=== PATIENT | female | born 1945 | race African-American/Black ===

== ENCOUNTER 2021-07-17 15:20 | Outpatient (CLI) | payer MEDICARE, MEDICAID ==
[2021-07-17 15:33] LABS: Bilirubin Negative (Negative); Blood, Urine Moderate (Negative); Clarity Turbid (Clear); Glucose, Urine (Dipstick) Negative (Negative); Ketone, Urine Negative (Negative); Leukocyte Negative (Negative); Nitrite Negative (Negative); Protein, Urine (Dipstick) Negative (Neg-Trace); pH, Urine 6.5 (5.0-9.0)
[2021-07-17 15:44] LABS: ALT (SGPT) 19 U/L (8-55); AST (SGOT) 17 U/L (5-34); Albumin 3.2 g/dL (3.4-4.8); Alkaline Phosphatase 139 U/L (40-110); Anion Gap 16 mmol/L (10-20); BUN (Urea Nitrogen) 22 mg/dL (9.8-20.1); Bilirubin, Total 0.2 mg/dL (0.2-1.2); Calc. Creatinine Clearance 0 mL/min (70-130); Calcium 9.2 mg/dL (7.8-10.44); Carbon Dioxide 26 mmol/L (23-31); Chloride 100 mmol/L (98-107); Globulin 4.2 g/dL (2.4-3.5); Glucose 238 mg/dL (83-110); Potassium 5.1 mmol/L (3.5-5.1); Protein, Total 7.4 g/dL (5.8-8.1); Sodium 137 mmol/L (136-145)
[2021-07-17 15:46] LABS: Bacteria/HPF 3+ HPF (None Seen); Oval Fat Bodies/HPF Rare HPF (None Seen); RBC/HPF 0-3 HPF (0-3); Squamous Epithelial 0-3 HPF (0-3); Transitional Epithelial 0-3 HPF (None Seen); WBC/HPF 0-3 HPF (0-3)
[2021-07-17 15:49] LABS: #Basophils 0.1 thou/uL (0.0-0.2); #Eosinphils 0.1 thou/uL (0.0-0.7); #Lymphocytes 3.1 thou/uL (1.20-3.40); #Monocytes 0.8 thou/uL (0.11-0.59); #Neutrophils 5.3 thou/uL (1.40-6.50); %Basophils 0.7 % (0.0-1.0); %Eosinophils 1.2 % (0.0-10.0); %Lymphocytes 32.9 % (21.0-51.0); %Monocytes 8.7 % (0.0-10.0); %Neutrophils 56.5 % (42.0-75.0); Hemoglobin 13.5 g/dL (12.0-16.0); Mean Corpuscular HGB CONC 31.6 g/dL (32.0-36.0); Mean Corpuscular Hemoglobin 27.5 pg (27.0-31.0); Mean Corpuscular Volume 86.9 fL (78.0-98.0); Platelet Count 336 thou/uL (130-400); RBC Distribution Width 14.1 % (11.5-14.5); Red Blood Cell (RBC) Count 4.93 mill/uL (4.20-5.40); White Blood Cell (WBC) Count 9.4 thou/uL (4.8-10.8)
== END 2021-07-17 15:21 | disposition home or self-care (01) ==
LOC: BURMANOR 15:20
PROVIDERS: ATTEND Family Medicine
DX: N39.0 Urinary tract infection, site not specified (principal); D50.9 Iron deficiency anemia, unspecified
CPT/HCPCS: 80053; 81001; 85025; 87077; 87086; 87186

== ENCOUNTER 2022-04-05 08:55 | Outpatient (CLI) | payer MEDICARE, OTHER | END 2022-04-05 08:56 | disposition home or self-care (01) | LOC: BURMANOR 08:55 | PROVIDERS: ATTEND Nurse Practitioner Family | DX: E11.8 Type 2 diabetes mellitus with unspecified complications (principal) | CPT/HCPCS: 83036 ==

== ENCOUNTER 2022-04-24 15:00 | Outpatient (CLI) | payer MEDICARE, OTHER ==
[2022-04-24 15:15] LABS: Bilirubin Negative (Negative); Blood, Urine Small (Negative); Clarity Cloudy (Clear); Glucose, Urine (Dipstick) 500 mg/dL (Negative); Ketone, Urine Negative (Negative); Leukocyte Small (Negative); Nitrite Negative (Negative); Protein, Urine (Dipstick) Negative (Neg-Trace); Specific Gravity, Urine 1.015 (1.005-1.030); pH, Urine 7.5 (5.0-9.0)
[2022-04-24 15:32] LABS: RBC/HPF 0-3 HPF (0-3)
[2022-04-24 15:33] LABS: Bacteria/HPF 1+ HPF (None Seen); Squamous Epithelial 0-3 HPF (0-3)
[2022-04-24 15:34] LABS: Yeast-Budding 2+ HPF (None Seen)
== END 2022-04-24 15:01 | disposition home or self-care (01) ==
LOC: BURMANOR 15:00
PROVIDERS: ATTEND Nurse Practitioner Family
DX: N39.0 Urinary tract infection, site not specified (principal)
CPT/HCPCS: 81003; 81015

== ENCOUNTER 2022-06-11 12:54 | Inpatient (IN) | payer MEDICARE, MEDICAID ==
[2022-06-11 15:30] VITALS: BMI 25.0
[2022-06-11] MEDS ORDERED: Loperamide HCl 2 MG CAP PER TUBE PRN (16:19)
[2022-06-11] MEDS: metFORMIN 500 MG TAB PER TUBE SCH (18:09)
[2022-06-11] MEDS ORDERED: Amino Acids/Protein Hydrolys [Pro-Stat 64 Liquid] 30 ML Packet PER TUBE SCH (21:00)
[2022-06-11] MEDS ORDERED: BACLOFEN 5 MG TABLET PER TUBE SCH (21:00)
[2022-06-11] MEDS: Senokot S 8.6-50 MG TAB PER TUBE SCH (21:40)
[2022-06-11] MEDS: Baclofen 10 MG TAB PER TUBE SCH (21:40)
[2022-06-12] MEDS: Famotidine 20 MG TAB PER TUBE SCH (10:44)
[2022-06-12] MEDS: Baclofen 10 MG TAB PER TUBE SCH ×2 (10:44→21:01)
[2022-06-12] MEDS: Chlorthalidone 25 MG TAB PER TUBE SCH (10:44)
[2022-06-12] MEDS: Zinc Sulfate 220 MG CAP PER TUBE SCH (10:44)
[2022-06-12] MEDS: Multivit, Therapeutic 1 TAB PER TUBE SCH (10:44)
[2022-06-12] MEDS: metFORMIN 500 MG TAB PER TUBE SCH ×2 (10:45→17:06)
[2022-06-12] MEDS: Empagliflozin 25 MG TAB PO SCH (10:45)
[2022-06-12] MEDS: Ascorbic Acid 500 mg Chewable Tablet PER TUBE SCH (10:45)
[2022-06-12] MEDS: Polyethylene Glycol 3350 17 GM Packet PER TUBE SCH (10:46)
[2022-06-12] MEDS: Senokot S 8.6-50 MG TAB PER TUBE SCH ×2 (10:46→21:02)
[2022-06-12] MEDS: Micafungin 100 MG in Sodium Chloride 0.9% 100 ML IVPB SCH (10:47)
[2022-06-12] MEDS: Acetaminophen 325 MG TAB PER TUBE PRN (20:59)
[2022-06-12] MEDS ORDERED: Acetaminophen 325 MG TAB PER TUBE SCH (21:00)
[2022-06-13] MEDS: Empagliflozin 25 MG TAB PO SCH (08:25)
[2022-06-13] MEDS: metFORMIN 500 MG TAB PER TUBE SCH ×2 (08:25→20:32)
[2022-06-13] MEDS: Ascorbic Acid 500 mg Chewable Tablet PER TUBE SCH (08:25)
[2022-06-13] MEDS: Baclofen 10 MG TAB PER TUBE SCH ×2 (08:26→20:32)
[2022-06-13] MEDS: Multivit, Therapeutic 1 TAB PER TUBE SCH (08:27)
[2022-06-13] MEDS: Zinc Sulfate 220 MG CAP PER TUBE SCH (08:27)
[2022-06-13] MEDS: Famotidine 20 MG TAB PER TUBE SCH (08:27)
[2022-06-13] MEDS: Chlorthalidone 25 MG TAB PER TUBE SCH (08:27)
[2022-06-13] MEDS: Polyethylene Glycol 3350 17 GM Packet PER TUBE SCH (08:28)
[2022-06-13] MEDS: Senokot S 8.6-50 MG TAB PER TUBE SCH ×2 (08:28→20:32)
[2022-06-13] MEDS: Micafungin 100 MG in Sodium Chloride 0.9% 100 ML IVPB SCH ×2 (08:29→20:33)
[2022-06-14] MEDS: Zinc Sulfate 220 MG CAP PER TUBE SCH (10:15)
[2022-06-14] MEDS: Ascorbic Acid 500 mg Chewable Tablet PER TUBE SCH (10:15)
[2022-06-14] MEDS: metFORMIN 500 MG TAB PER TUBE SCH ×2 (10:15→18:01)
[2022-06-14] MEDS: Baclofen 10 MG TAB PER TUBE SCH ×2 (10:16→22:48)
[2022-06-14] MEDS: Chlorthalidone 25 MG TAB PER TUBE SCH (10:16)
[2022-06-14] MEDS: Famotidine 20 MG TAB PER TUBE SCH (10:16)
[2022-06-14] MEDS: Senokot S 8.6-50 MG TAB PER TUBE SCH ×2 (10:16→22:48)
[2022-06-14] MEDS: Multivit, Therapeutic 1 TAB PER TUBE SCH (10:16)
[2022-06-14] MEDS: Empagliflozin 25 MG TAB PO SCH (10:17)
[2022-06-14] MEDS: Polyethylene Glycol 3350 17 GM Packet PER TUBE SCH ×2 (10:18→18:02)
[2022-06-14] MEDS: Micafungin 100 MG in Sodium Chloride 0.9% 100 ML IVPB SCH (20:29)
[2022-06-15] MEDS: Senokot S 8.6-50 MG TAB PER TUBE SCH (10:36)
[2022-06-15] MEDS: metFORMIN 500 MG TAB PER TUBE SCH ×2 (10:37→18:39)
[2022-06-15] MEDS: Ascorbic Acid 500 mg Chewable Tablet PER TUBE SCH (10:37)
[2022-06-15] MEDS: Baclofen 10 MG TAB PER TUBE SCH (10:38)
[2022-06-15] MEDS: Chlorthalidone 25 MG TAB PER TUBE SCH (10:39)
[2022-06-15] MEDS: Zinc Sulfate 220 MG CAP PER TUBE SCH (10:39)
[2022-06-15] MEDS: Multivit, Therapeutic 1 TAB PER TUBE SCH (10:39)
[2022-06-15] MEDS: Empagliflozin 25 MG TAB PO SCH (10:39)
[2022-06-15] MEDS: Famotidine 20 MG TAB PER TUBE SCH (10:41)
[2022-06-15] MEDS: Polyethylene Glycol 3350 17 GM Packet PER TUBE SCH (12:36)
[2022-06-15] MEDS: Micafungin 100 MG in Sodium Chloride 0.9% 100 ML IVPB SCH (20:45)
[2022-06-15] MEDS ORDERED: Baclofen 10 MG TAB PER TUBE SCH (23:45)
[2022-06-15] MEDS ORDERED: Senokot S 8.6-50 MG TAB PER TUBE SCH (23:45)
[2022-06-16] MEDS: Senokot S 8.6-50 MG TAB PER TUBE SCH ×4 (00:02→21:16)
[2022-06-16] MEDS: Baclofen 10 MG TAB PER TUBE SCH ×3 (00:02→20:39)
[2022-06-16] MEDS: Acetaminophen 325 MG TAB PER TUBE PRN (05:33)
[2022-06-16 05:53] LABS: #Basophils 0.1 thou/uL (0.0-0.2); #Lymphocytes 1.7 thou/uL (1.20-3.40); #Monocytes 0.7 thou/uL (0.11-0.59); %Basophils 0.9 % (0.0-1.0); %Lymphocytes 16.3 % (21.0-51.0); %Neutrophils 75.9 % (42.0-75.0); Hemoglobin 13.3 g/dL (12.0-16.0); Mean Corpuscular HGB CONC 32.3 g/dL (32.0-36.0); Mean Corpuscular Hemoglobin 28.6 pg (27.0-31.0); Mean Corpuscular Volume 88.4 fL (78.0-98.0); Mean Platelet Volume 8.7 fL (7.4-10.4); Platelet Count 578 thou/uL (130-400); RBC Distribution Width 15.3 % (11.5-14.5); Red Blood Cell (RBC) Count 4.67 mill/uL (4.20-5.40); White Blood Cell (WBC) Count 10.5 thou/uL (4.8-10.8)
[2022-06-16 05:59] LABS: Lactic Acid 2.4 mmol/L (0.5-2.2)
[2022-06-16 06:05] LABS: ALT (SGPT) 17 U/L (8-55); AST (SGOT) 11 U/L (5-34); Albumin 3.8 g/dL (3.4-4.8); Alkaline Phosphatase 161 U/L (40-110); Anion Gap 21 mmol/L (10-20); BUN (Urea Nitrogen) 92 mg/dL (9.8-20.1); Bilirubin, Total 0.2 mg/dL (0.2-1.2); Calc. Creatinine Clearance 55 mL/min (70-130); Carbon Dioxide 32 mmol/L (23-31); Chloride 104 mmol/L (98-107); Estimated GFR 75; Globulin 5.3 g/dL (2.4-3.5); Glucose 303 mg/dL (83-110); Potassium 4.1 mmol/L (3.5-5.1); Protein, Total 9.1 g/dL (5.8-8.1); Sodium 153 mmol/L (136-145)
[2022-06-16 06:29] LABS: Bilirubin Negative (Negative); Blood, Urine Moderate (Negative); Glucose, Urine (Dipstick) >=1000 mg/dL (Negative); Ketone, Urine Negative (Negative); Leukocyte Negative (Negative); Nitrite Negative (Negative); Protein, Urine (Dipstick) 30 mg/dL (Neg-Trace); Urobilinogen 0.2 mg/dL (Less than 2)
[2022-06-16 06:30] LABS: Clarity Hazy (Clear); Urine Culture Reflex No No
[2022-06-16 06:37] LABS: Bacteria/HPF 2+ HPF (None Seen); Yeast-Budding Rare HPF (None Seen)
[2022-06-16] MEDS ORDERED: Sodium Chloride 0.45% 1,000 ML IV SCH ×3 (08:30→22:15)
[2022-06-16] MEDS: metFORMIN 500 MG TAB PER TUBE SCH ×2 (09:00→17:25)
[2022-06-16] MEDS: Ascorbic Acid 500 mg Chewable Tablet PER TUBE SCH (09:01)
[2022-06-16] MEDS: Famotidine 20 MG TAB PER TUBE SCH (09:02)
[2022-06-16] MEDS: Chlorthalidone 25 MG TAB PER TUBE SCH (09:02)
[2022-06-16] MEDS: Empagliflozin 25 MG TAB PO SCH (09:02)
[2022-06-16] MEDS: Multivit, Therapeutic 1 TAB PER TUBE SCH (09:02)
[2022-06-16] MEDS: Zinc Sulfate 220 MG CAP PER TUBE SCH (09:02)
[2022-06-16] MEDS: Polyethylene Glycol 3350 17 GM Packet PER TUBE SCH ×2 (09:03→10:53)
[2022-06-16] MEDS: Micafungin 100 MG in Sodium Chloride 0.9% 100 ML IVPB SCH (20:39)
[2022-06-17 05:44] LABS: #Basophils 0.1 thou/uL (0.0-0.2); #Lymphocytes 3.1 thou/uL (1.20-3.40); #Monocytes 0.9 thou/uL (0.11-0.59); #Neutrophils 7.4 thou/uL (1.40-6.50); %Basophils 1.1 % (0.0-1.0); %Eosinophils 0.3 % (0.0-10.0); %Lymphocytes 26.5 % (21.0-51.0); %Neutrophils 64.2 % (42.0-75.0); Hemoglobin 11.9 g/dL (12.0-16.0); Mean Corpuscular HGB CONC 31.8 g/dL (32.0-36.0); Mean Corpuscular Hemoglobin 28.3 pg (27.0-31.0); Mean Platelet Volume 9.1 fL (7.4-10.4); Platelet Count 483 thou/uL (130-400); RBC Distribution Width 14.9 % (11.5-14.5); Red Blood Cell (RBC) Count 4.19 mill/uL (4.20-5.40); White Blood Cell (WBC) Count 11.5 thou/uL (4.8-10.8)
[2022-06-17 05:55] LABS: Anion Gap 15 mmol/L (10-20)
[2022-06-17 06:14] LABS: ALT (SGPT) 17 U/L (8-55); AST (SGOT) 13 U/L (5-34); Albumin 3.4 g/dL (3.4-4.8); Alkaline Phosphatase 137 U/L (40-110); BUN (Urea Nitrogen) 61 mg/dL (9.8-20.1); Bilirubin, Total 0.4 mg/dL (0.2-1.2); Calc. Creatinine Clearance 73 mL/min (70-130); Carbon Dioxide 31 mmol/L (23-31); Chloride 106 mmol/L (98-107); Estimated GFR 93; Globulin 4.4 g/dL (2.4-3.5); Glucose 178 mg/dL (83-110); Potassium 3.5 mmol/L (3.5-5.1); Protein, Total 7.8 g/dL (5.8-8.1); Sodium 148 mmol/L (136-145)
[2022-06-17] MEDS ORDERED: Sodium Chloride 0.45% 1,000 ML IV SCH (06:49)
[2022-06-17] MEDS: cefTRIAXone\\ROCEPHIN 1 GM in Sodium Chloride 0.9% 100 ML IVPB SCH (09:15)
[2022-06-17] MEDS: metFORMIN 500 MG TAB PER TUBE SCH ×2 (09:16→17:06)
[2022-06-17] MEDS: Ascorbic Acid 500 mg Chewable Tablet PER TUBE SCH (09:17)
[2022-06-17] MEDS: Empagliflozin 25 MG TAB PO SCH (09:17)
[2022-06-17] MEDS: Famotidine 20 MG TAB PER TUBE SCH (09:17)
[2022-06-17] MEDS: Polyethylene Glycol 3350 17 GM Packet PER TUBE SCH (09:17)
[2022-06-17] MEDS: Multivit, Therapeutic 1 TAB PER TUBE SCH (09:17)
[2022-06-17] MEDS: Chlorthalidone 25 MG TAB PER TUBE SCH (09:18)
[2022-06-17] MEDS: Baclofen 10 MG TAB PER TUBE SCH ×2 (09:18→22:07)
[2022-06-17] MEDS: Zinc Sulfate 220 MG CAP PER TUBE SCH (09:18)
[2022-06-17] MEDS: EXENATIDE 2 MG/0.85 ML SC SCH (11:56)
[2022-06-17] MEDS: Senokot S 8.6-50 MG TAB PER TUBE SCH ×2 (16:47→22:08)
[2022-06-17] MEDS: Micafungin 100 MG in Sodium Chloride 0.9% 100 ML IVPB SCH (22:06)
[2022-06-18] MEDS: cefTRIAXone\\ROCEPHIN 1 GM in Sodium Chloride 0.9% 100 ML IVPB SCH (09:11)
[2022-06-18] MEDS: metFORMIN 500 MG TAB PER TUBE SCH ×2 (09:12→18:33)
[2022-06-18] MEDS: Ascorbic Acid 500 mg Chewable Tablet PER TUBE SCH (09:12)
[2022-06-18] MEDS: Baclofen 10 MG TAB PER TUBE SCH ×2 (09:12→21:57)
[2022-06-18] MEDS: Empagliflozin 25 MG TAB PO SCH (09:13)
[2022-06-18] MEDS: Multivit, Therapeutic 1 TAB PER TUBE SCH (09:13)
[2022-06-18] MEDS: Chlorthalidone 25 MG TAB PER TUBE SCH (09:13)
[2022-06-18] MEDS: Famotidine 20 MG TAB PER TUBE SCH (09:13)
[2022-06-18] MEDS: Polyethylene Glycol 3350 17 GM Packet PER TUBE SCH (09:15)
[2022-06-18] MEDS: Zinc Sulfate 220 MG CAP PER TUBE SCH (10:00)
[2022-06-18] MEDS: Senokot S 8.6-50 MG TAB PER TUBE SCH ×2 (11:46→21:58)
[2022-06-18] MEDS: Micafungin 100 MG in Sodium Chloride 0.9% 100 ML IVPB SCH (21:36)
[2022-06-19] MEDS: metFORMIN 500 MG TAB PER TUBE SCH ×2 (09:17→17:53)
[2022-06-19] MEDS: Ascorbic Acid 500 mg Chewable Tablet PER TUBE SCH (09:18)
[2022-06-19] MEDS: Multivit, Therapeutic 1 TAB PER TUBE SCH (09:18)
[2022-06-19] MEDS: Baclofen 10 MG TAB PER TUBE SCH ×2 (09:18→22:30)
[2022-06-19] MEDS: Famotidine 20 MG TAB PER TUBE SCH (09:18)
[2022-06-19] MEDS: Chlorthalidone 25 MG TAB PER TUBE SCH (09:19)
[2022-06-19] MEDS: Polyethylene Glycol 3350 17 GM Packet PER TUBE SCH (09:19)
[2022-06-19] MEDS: Empagliflozin 25 MG TAB PO SCH (09:19)
[2022-06-19] MEDS: cefTRIAXone\\ROCEPHIN 1 GM in Sodium Chloride 0.9% 100 ML IVPB SCH (09:20)
[2022-06-19] MEDS: Zinc Sulfate 220 MG CAP PER TUBE SCH (09:20)
[2022-06-19] MEDS: Senokot S 8.6-50 MG TAB PER TUBE SCH ×2 (09:20→22:32)
[2022-06-19] MEDS: Micafungin 100 MG in Sodium Chloride 0.9% 100 ML IVPB SCH (22:31)
[2022-06-20] MEDS: cefTRIAXone\\ROCEPHIN 1 GM in Sodium Chloride 0.9% 100 ML IVPB SCH (08:32)
[2022-06-20] MEDS: metFORMIN 500 MG TAB PER TUBE SCH ×2 (08:33→18:28)
[2022-06-20] MEDS: Senokot S 8.6-50 MG TAB PER TUBE SCH ×2 (08:34→20:30)
[2022-06-20] MEDS: Ascorbic Acid 500 mg Chewable Tablet PER TUBE SCH (08:34)
[2022-06-20] MEDS: Baclofen 10 MG TAB PER TUBE SCH ×2 (08:35→20:29)
[2022-06-20] MEDS: Chlorthalidone 25 MG TAB PER TUBE SCH (08:36)
[2022-06-20] MEDS: Famotidine 20 MG TAB PER TUBE SCH (08:36)
[2022-06-20] MEDS: Multivit, Therapeutic 1 TAB PER TUBE SCH (08:36)
[2022-06-20] MEDS: Zinc Sulfate 220 MG CAP PER TUBE SCH (08:36)
[2022-06-20] MEDS: Empagliflozin 25 MG TAB PO SCH (08:37)
[2022-06-20] MEDS: Polyethylene Glycol 3350 17 GM Packet PER TUBE SCH (08:41)
[2022-06-20] MEDS: Micafungin 100 MG in Sodium Chloride 0.9% 100 ML IVPB SCH (20:29)
[2022-06-21 05:11] LABS: ALT (SGPT) 30 U/L (8-55); AST (SGOT) 21 U/L (5-34); Albumin 3.5 g/dL (3.4-4.8); Alkaline Phosphatase 128 U/L (40-110); Anion Gap 18 mmol/L (10-20); BUN (Urea Nitrogen) 38 mg/dL (9.8-20.1); Bilirubin, Total 0.3 mg/dL (0.2-1.2); Calc. Creatinine Clearance 74 mL/min (70-130); Calcium 10.1 mg/dL (7.8-10.44); Carbon Dioxide 28 mmol/L (23-31); Chloride 101 mmol/L (98-107); Estimated GFR 94; Globulin 4.4 g/dL (2.4-3.5); Glucose 178 mg/dL (83-110); Potassium 3.7 mmol/L (3.5-5.1); Protein, Total 7.9 g/dL (5.8-8.1); Sodium 143 mmol/L (136-145)
[2022-06-21 05:32] LABS: #Basophils 0.1 thou/uL (0.0-0.2); #Eosinphils 0.1 thou/uL (0.0-0.7); #Lymphocytes 3.8 thou/uL (1.20-3.40); #Monocytes 0.8 thou/uL (0.11-0.59); #Neutrophils 8.1 thou/uL (1.40-6.50); %Basophils 1.1 % (0.0-1.0); %Eosinophils 0.6 % (0.0-10.0); %Lymphocytes 29.3 % (21.0-51.0); %Monocytes 6.2 % (0.0-10.0); %Neutrophils 62.9 % (42.0-75.0); Hemoglobin 13.1 g/dL (12.0-16.0); Mean Corpuscular HGB CONC 32.3 g/dL (32.0-36.0); Mean Corpuscular Hemoglobin 28.7 pg (27.0-31.0); Mean Corpuscular Volume 88.9 fL (78.0-98.0); Mean Platelet Volume 9.3 fL (7.4-10.4); Platelet Count 387 thou/uL (130-400); Red Blood Cell (RBC) Count 4.55 mill/uL (4.20-5.40); White Blood Cell (WBC) Count 12.9 thou/uL (4.8-10.8)
[2022-06-21] MEDS: cefTRIAXone\\ROCEPHIN 1 GM in Sodium Chloride 0.9% 100 ML IVPB SCH (09:10)
[2022-06-21] MEDS: Polyethylene Glycol 3350 17 GM Packet PER TUBE SCH (09:10)
[2022-06-21] MEDS: Zinc Sulfate 220 MG CAP PER TUBE SCH (09:11)
[2022-06-21] MEDS: metFORMIN 500 MG TAB PER TUBE SCH ×2 (09:11→17:27)
[2022-06-21] MEDS: Empagliflozin 25 MG TAB PO SCH (09:11)
[2022-06-21] MEDS: Baclofen 10 MG TAB PER TUBE SCH ×2 (09:11→20:53)
[2022-06-21] MEDS: Multivit, Therapeutic 1 TAB PER TUBE SCH (09:11)
[2022-06-21] MEDS: Ascorbic Acid 500 mg Chewable Tablet PER TUBE SCH (09:11)
[2022-06-21] MEDS: Famotidine 20 MG TAB PER TUBE SCH (09:11)
[2022-06-21] MEDS: Loratadine 10 MG TAB PO SCH (09:12)
[2022-06-21] MEDS: Chlorthalidone 25 MG TAB PER TUBE SCH (09:12)
[2022-06-21] MEDS: Senokot S 8.6-50 MG TAB PER TUBE SCH ×2 (09:12→20:54)
[2022-06-21] MEDS: Scopolamine 1.5 mg/72 hour Patch TOP SCH (14:01)
[2022-06-21] MEDS: Micafungin 100 MG in Sodium Chloride 0.9% 100 ML IVPB SCH (20:53)
[2022-06-22] MEDS: metFORMIN 500 MG TAB PER TUBE SCH ×2 (09:09→18:20)
[2022-06-22] MEDS: Ascorbic Acid 500 mg Chewable Tablet PER TUBE SCH (09:09)
[2022-06-22] MEDS: cefTRIAXone\\ROCEPHIN 1 GM in Sodium Chloride 0.9% 100 ML IVPB SCH (09:09)
[2022-06-22] MEDS: Chlorthalidone 25 MG TAB PER TUBE SCH (09:10)
[2022-06-22] MEDS: Famotidine 20 MG TAB PER TUBE SCH (09:10)
[2022-06-22] MEDS: Zinc Sulfate 220 MG CAP PER TUBE SCH (09:10)
[2022-06-22] MEDS: Loratadine 10 MG TAB PO SCH (09:10)
[2022-06-22] MEDS: Empagliflozin 25 MG TAB PO SCH (09:10)
[2022-06-22] MEDS: Baclofen 10 MG TAB PER TUBE SCH ×2 (09:10→21:34)
[2022-06-22] MEDS: Multivit, Therapeutic 1 TAB PER TUBE SCH (09:11)
[2022-06-22] MEDS: Senokot S 8.6-50 MG TAB PER TUBE SCH ×2 (09:11→21:35)
[2022-06-22] MEDS: Polyethylene Glycol 3350 17 GM Packet PER TUBE SCH (09:11)
[2022-06-22] MEDS: Micafungin 100 MG in Sodium Chloride 0.9% 100 ML IVPB SCH (21:36)
[2022-06-23] MEDS: cefTRIAXone\\ROCEPHIN 1 GM in Sodium Chloride 0.9% 100 ML IVPB SCH (08:22)
[2022-06-23] MEDS: metFORMIN 500 MG TAB PER TUBE SCH ×2 (08:23→18:53)
[2022-06-23] MEDS: Ascorbic Acid 500 mg Chewable Tablet PER TUBE SCH (08:23)
[2022-06-23] MEDS: Loratadine 10 MG TAB PO SCH (08:23)
[2022-06-23] MEDS: Chlorthalidone 25 MG TAB PER TUBE SCH (08:23)
[2022-06-23] MEDS: Zinc Sulfate 220 MG CAP PER TUBE SCH (08:24)
[2022-06-23] MEDS: Baclofen 10 MG TAB PER TUBE SCH ×2 (08:24→20:36)
[2022-06-23] MEDS: Multivit, Therapeutic 1 TAB PER TUBE SCH (08:24)
[2022-06-23] MEDS: Famotidine 20 MG TAB PER TUBE SCH (08:25)
[2022-06-23] MEDS: Empagliflozin 25 MG TAB PO SCH (08:25)
[2022-06-23] MEDS: Polyethylene Glycol 3350 17 GM Packet PER TUBE SCH (08:29)
[2022-06-23] MEDS: Senokot S 8.6-50 MG TAB PER TUBE SCH ×2 (08:30→20:48)
[2022-06-23] MEDS: Micafungin 100 MG in Sodium Chloride 0.9% 100 ML IVPB SCH (20:48)
[2022-06-24] MEDS: cefTRIAXone\\ROCEPHIN 1 GM in Sodium Chloride 0.9% 100 ML IVPB SCH (09:02)
[2022-06-24] MEDS: Baclofen 10 MG TAB PER TUBE SCH ×2 (09:03→21:55)
[2022-06-24] MEDS: metFORMIN 500 MG TAB PER TUBE SCH ×2 (09:03→17:20)
[2022-06-24] MEDS: Chlorthalidone 25 MG TAB PER TUBE SCH (09:03)
[2022-06-24] MEDS: Famotidine 20 MG TAB PER TUBE SCH (09:03)
[2022-06-24] MEDS: Polyethylene Glycol 3350 17 GM Packet PER TUBE SCH (09:03)
[2022-06-24] MEDS: Senokot S 8.6-50 MG TAB PER TUBE SCH ×2 (09:04→21:55)
[2022-06-24] MEDS: Loratadine 10 MG TAB PO SCH (09:04)
[2022-06-24] MEDS: Multivit, Therapeutic 1 TAB PER TUBE SCH (09:04)
[2022-06-24] MEDS: Empagliflozin 25 MG TAB PO SCH (09:04)
[2022-06-24] MEDS: Ascorbic Acid 500 mg Chewable Tablet PER TUBE SCH (09:04)
[2022-06-24] MEDS: Zinc Sulfate 220 MG CAP PER TUBE SCH (09:04)
[2022-06-24] MEDS: EXENATIDE 2 MG/0.85 ML SC SCH (11:02)
[2022-06-24] MEDS: Scopolamine 1.5 mg/72 hour Patch TOP SCH (13:40)
[2022-06-24] MEDS: Micafungin 100 MG in Sodium Chloride 0.9% 100 ML IVPB SCH (21:56)
[2022-06-25 05:34] LABS: ALT (SGPT) 42 U/L (8-55); AST (SGOT) 21 U/L (5-34); Albumin 3.6 g/dL (3.4-4.8); Alkaline Phosphatase 152 U/L (40-110); Anion Gap 18 mmol/L (10-20); BUN (Urea Nitrogen) 40 mg/dL (9.8-20.1); Bilirubin, Total 0.2 mg/dL (0.2-1.2); Calc. Creatinine Clearance 78 mL/min (70-130); Calcium 10.1 mg/dL (7.8-10.44); Carbon Dioxide 28 mmol/L (23-31); Chloride 100 mmol/L (98-107); Estimated GFR 95; Globulin 4.4 g/dL (2.4-3.5); Glucose 204 mg/dL (83-110); Potassium 3.8 mmol/L (3.5-5.1); Sodium 142 mmol/L (136-145)
[2022-06-25 06:01] LABS: Hemoglobin 13.3 g/dL (12.0-16.0); Mean Corpuscular HGB CONC 32.7 g/dL (32.0-36.0); Mean Corpuscular Hemoglobin 28.7 pg (27.0-31.0); Mean Corpuscular Volume 87.6 fL (78.0-98.0); Mean Platelet Volume 10.4 fL (7.4-10.4); Platelet Count 304 thou/uL (130-400); RBC Distribution Width 15.3 % (11.5-14.5); Red Blood Cell (RBC) Count 4.66 mill/uL (4.20-5.40); White Blood Cell (WBC) Count 10.6 thou/uL (4.8-10.8)
[2022-06-25 06:46] LABS: Band 1 % (5-11); Lymphocytes 33 % (21-51); MDiff Complete? YES; Monocytes 4 % (0-10); Neutrophil 61 % (42-75)
[2022-06-25] MEDS: Ascorbic Acid 500 mg Chewable Tablet PER TUBE SCH (08:47)
[2022-06-25] MEDS: Zinc Sulfate 220 MG CAP PER TUBE SCH (08:48)
[2022-06-25] MEDS: Multivit, Therapeutic 1 TAB PER TUBE SCH (08:48)
[2022-06-25] MEDS: Empagliflozin 25 MG TAB PO SCH (08:48)
[2022-06-25] MEDS: Baclofen 10 MG TAB PER TUBE SCH ×2 (08:48→20:58)
[2022-06-25] MEDS: Famotidine 20 MG TAB PER TUBE SCH (08:48)
[2022-06-25] MEDS: Senokot S 8.6-50 MG TAB PER TUBE SCH ×2 (08:48→20:58)
[2022-06-25] MEDS: Chlorthalidone 25 MG TAB PER TUBE SCH (08:48)
[2022-06-25] MEDS: metFORMIN 500 MG TAB PER TUBE SCH ×2 (08:48→17:10)
[2022-06-25] MEDS: Loratadine 10 MG TAB PO SCH (08:49)
[2022-06-25] MEDS: Polyethylene Glycol 3350 17 GM Packet PER TUBE SCH (08:57)
[2022-06-25] MEDS: Micafungin 100 MG in Sodium Chloride 0.9% 100 ML IVPB SCH (21:00)
[2022-06-26] MEDS: Polyethylene Glycol 3350 17 GM Packet PER TUBE SCH (09:42)
[2022-06-26] MEDS: metFORMIN 500 MG TAB PER TUBE SCH ×2 (09:42→18:53)
[2022-06-26] MEDS: Empagliflozin 25 MG TAB PO SCH (09:43)
[2022-06-26] MEDS: Famotidine 20 MG TAB PER TUBE SCH (09:43)
[2022-06-26] MEDS: Multivit, Therapeutic 1 TAB PER TUBE SCH (09:43)
[2022-06-26] MEDS: Ascorbic Acid 500 mg Chewable Tablet PER TUBE SCH (09:43)
[2022-06-26] MEDS: Baclofen 10 MG TAB PER TUBE SCH ×2 (09:44→20:55)
[2022-06-26] MEDS: Senokot S 8.6-50 MG TAB PER TUBE SCH ×2 (09:44→20:59)
[2022-06-26] MEDS: Chlorthalidone 25 MG TAB PER TUBE SCH (09:44)
[2022-06-26] MEDS: Zinc Sulfate 220 MG CAP PER TUBE SCH (09:44)
[2022-06-26] MEDS: Loratadine 10 MG TAB PO SCH (09:44)
[2022-06-26] MEDS: Micafungin 100 MG in Sodium Chloride 0.9% 100 ML IVPB SCH (20:56)
[2022-06-27 06:12] VITALS: BP 130/81; TEMP 99
[2022-06-27] MEDS: Loratadine 10 MG TAB PO SCH (09:40)
[2022-06-27] MEDS: Empagliflozin 25 MG TAB PO SCH (09:40)
[2022-06-27] MEDS: metFORMIN 500 MG TAB PER TUBE SCH (09:41)
[2022-06-27] MEDS: Multivit, Therapeutic 1 TAB PER TUBE SCH (09:41)
[2022-06-27] MEDS: Baclofen 10 MG TAB PER TUBE SCH (09:41)
[2022-06-27] MEDS: Chlorthalidone 25 MG TAB PER TUBE SCH (09:42)
[2022-06-27] MEDS: Zinc Sulfate 220 MG CAP PER TUBE SCH (09:42)
[2022-06-27] MEDS: Famotidine 20 MG TAB PER TUBE SCH (09:42)
[2022-06-27] MEDS: Ascorbic Acid 500 mg Chewable Tablet PER TUBE SCH (09:42)
[2022-06-27] MEDS: Polyethylene Glycol 3350 17 GM Packet PER TUBE SCH (09:43)
[2022-06-27] MEDS: Senokot S 8.6-50 MG TAB PER TUBE SCH (09:44)
== END 2022-06-27 13:40 | DRG 868 ==
LOC: UNDOADMIN 12:54 → BURMED 12:54
PROVIDERS: ADMIT Family Medicine; ATTEND Family Medicine
DX: B49 Unspecified mycosis (principal); E87.0 Hyperosmolality and hypernatremia; R64 Cachexia; F01.50 Vascular dementia, unspecified severity, without behavioral disturbance, psychotic disturbance, mood disturbance, and anxiety; E11.9 Type 2 diabetes mellitus without complications; K21.9 Gastro-esophageal reflux disease without esophagitis; R13.10 Dysphagia, unspecified; I10 Essential (primary) hypertension; R91.8 Other nonspecific abnormal finding of lung field; E78.5 Hyperlipidemia, unspecified; L89.229 Pressure ulcer of left hip, unspecified stage; Z20.822 Contact with and (suspected) exposure to COVID-19; E86.0 Dehydration; I69.991 Dysphagia following unspecified cerebrovascular disease; Z88.8 Allergy status to other drugs, medicaments and biological substances; Z93.1 Gastrostomy status; Z91.018 Allergy to other foods; Z79.899 Other long term (current) drug therapy; Z79.84 Long term (current) use of oral hypoglycemic drugs; Z68.25 Body mass index [BMI] 25.0-25.9, adult
CPT/HCPCS: 36415; 36416; 71045; 80053; 81001; 83605; 85025; 87040; 97602; J0696; J2248; J3490; U0003; U0005

== ENCOUNTER 2023-07-29 12:17 | Outpatient (CLI) | payer MEDICARE, OTHER | END 2023-07-29 12:18 | disposition home or self-care (01) | LOC: BURMANOR 12:17 | PROVIDERS: ATTEND Internal Medicine Geriatric Medicine | DX: L89.224 Pressure ulcer of left hip, stage 4 (principal) | CPT/HCPCS: 87070; 87077; 87205 ==